=== PATIENT | female | born 1950 | race Caucasian/White ===

== ENCOUNTER → 2018-02-04 | Outpatient (CLI) | payer OTHER | END | disposition home or self-care (01) | LOC: OIH 13:35 | PROVIDERS: ATTEND Internal Medicine Endocrinology, Diabetes & Metabolism | DX: Z13.6 Encounter for screening for cardiovascular disorders (principal) | CPT/HCPCS: 75571 ==

== ENCOUNTER → 2021-01-31 | Outpatient (CLI) | payer OTHER | END | disposition home or self-care (01) | LOC: OIH 14:49 | PROVIDERS: ATTEND Internal Medicine Cardiovascular Disease | DX: Z13.6 Encounter for screening for cardiovascular disorders (principal); I10 Essential (primary) hypertension | CPT/HCPCS: 75571 ==

== ENCOUNTER → 2022-09-13 | Outpatient (CLI) | payer MEDICARE | END | disposition home or self-care (01) | LOC: SHCH 14:44 | PROVIDERS: ATTEND Internal Medicine Cardiovascular Disease | DX: R00.2 Palpitations (principal) | CPT/HCPCS: 93306 ==

== ENCOUNTER → 2022-10-11 | Outpatient (CLI) | payer MEDICARE ==
[2022-10-11 13:51] LABS: CHOLESTEROL 229 mg/dL (<200); HDL CHOLESTEROL 48 mg/dL (35-85); LDL DIRECT 153 mg/dL (0-99); TRIGLYCERIDES 129 mg/dL (30-200)
== END | disposition home or self-care (01) ==
LOC: LAB 08:55
PROVIDERS: ATTEND Internal Medicine Cardiovascular Disease
DX: E78.5 Hyperlipidemia, unspecified (principal)
CPT/HCPCS: 36415; 80061

== ENCOUNTER → 2023-01-29 | Outpatient (CLI) | payer OTHER | END | disposition home or self-care (01) | LOC: RAH 14:10 | PROVIDERS: ATTEND Internal Medicine Cardiovascular Disease | DX: Z13.6 Encounter for screening for cardiovascular disorders (principal) | CPT/HCPCS: 75571 ==

== ENCOUNTER → 2025-08-05 | Outpatient (CLI) | payer MEDICARE ==
--- NOTE | 2025-08-06 08:59 | HMCIMG ---
EXAM: CR left Shoulder, 2 View. CLINICAL HISTORY: PAIN IN LEFT SHOULDER COMPARISON: None provided. FINDINGS: BONES: No acute fracture or aggressive appearing osseous lesion. JOINTS: No dislocation. The joint spaces are normal. SOFT TISSUES: The soft tissues are unremarkable. IMPRESSION: No acute abnormality evident on examination of the left shoulder. No acute fracture or dislocation. /[place]
== END | disposition home or self-care (01) ==
LOC: RAH 14:20
PROVIDERS: ATTEND Internal Medicine
DX: M25.512 Pain in left shoulder (principal)
CPT/HCPCS: 73030

== ENCOUNTER → 2025-08-18 | Outpatient (CLI) | payer MEDICARE ==
--- NOTE | 2025-08-18 21:45 | HMCIMG ---
STUDY MR ??? MRI Shoulder Left without intravenous contrast. HISTORY Left shoulder lesion. TECHNIQUE Multiplanar, multisequence MR imaging of the left shoulder performed without intravenous contrast using axial T1, axial STIR, coronal T2, coronal STIR, sagittal T2 and sagittal PD fat-suppressed PROPELLER acquisitions. COMPARISON None provided. FINDINGS Rotator Cuff Tendons There is supraspinatus tendinosis with a high-grade articular-surface partial-thickness tear involving approximately 60???70% of tendon thickness, consistent with an Ellman Grade III partial-thickness articular-surface tear. The retraction gap measures approximately 1.4 cm, and the anteroposterior tear dimension measures 1.3 cm. The myotendinous junction is impinged upon by adjacent acromioclavicular osteophytes. Subscapularis tendinosis and infraspinatus tendinosis are present without discrete tear. Teres minor is intact. The long head of the biceps tendon is intact and normally located. Ligamentous Structures The coracohumeral ligament is thickened, measuring approximately 1.1 cm. Capsular???ligamentous oedema is present involving the inferior glenohumeral ligament complex. Glenohumeral Joint Minimal joint effusion is present. No displaced labral tear is identified. No chondral defect. Glenohumeral alignment and cartilage preservation are maintained. Acromioclavicular Joint and Coracoacromial Arch There is moderate degenerative osteoarthrosis of the acromioclavicular joint with periarticular oedema and inferior osteophyte formation contributing to impingement upon the supraspinatus myotendinous interval. The acromion has a Type II morphology. The coracoacromial ligament appears intact. Bones No acute fracture. Osseous signal is otherwise preserved. No aggressive osseous lesion. Muscles Normal stevan-scapular and rotator-cuff muscle bulk and signal. No muscle atrophy or fatty infiltration. Bursae and Soft Tissues Minimal fluid is present within the subcoracoid bursa. No significant subacromial???subdeltoid bursal fluid. No soft-tissue mass. IMPRESSION * High-grade articular-surface partial-thickness supraspinatus tear (Ellman Grade III) involving approximately 60???70% tendon thickness with a 1.4 cm retraction gap and 1.3 cm anteroposterior tear dimension, in the setting of supraspinatus tendinosis. 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 * Thickened coracohumeral ligament with capsular???ligamentous oedema of the inferior glenohumeral ligament complex and minimal synovitis, compatible with associated rotator-interval and capsular inflammatory change. * Subscapularis and infraspinatus tendinosis without discrete tear; intact long head of biceps tendon. * No acute osseous abnormality. /[place]
== END | disposition home or self-care (01) ==
LOC: RAH 12:31
PROVIDERS: ATTEND Internal Medicine
DX: M75.112 Incomplete rotator cuff tear or rupture of left shoulder, not specified as traumatic (principal); M19.012 Primary osteoarthritis, left shoulder; M25.712 Osteophyte, left shoulder; M65.912 Unspecified synovitis and tenosynovitis, left shoulder; M25.812 Other specified joint disorders, left shoulder; M75.82 Other shoulder lesions, left shoulder; M25.512 Pain in left shoulder
CPT/HCPCS: 73221